=== PATIENT | male | born 1995 | race American Indian/Alaskan Native ===

== ENCOUNTER 2019-08-30 14:46 | Emergency (ER) | payer BC ==
[2019-08-30 15:08] VITALS: BP 154/79
--- NOTE | 2019-08-30 15:33 | Emergency Department Report ---
ED ENT HPI - General Chief complaint: Sore Throat Stated complaint: STREP Time Seen by Provider: 08/30/19 15:28 Source: patient Mode of arrival: Ambulatory Limitations: No Limitations - History of Present Illness Initial comments: This is a 24-year-old male nontoxic well in appearance with no signs of distress presents to the ED with complaint of sore throat. Patient denies any drooling or hoarseness. Patient denies any other symptoms. Denies any fever, chills, headache, nausea, vomiting, chest pain or SOB. Denies any other complaints. MD complaint: sore throat -: days(s) Location: throat Severity: mild Severity scale (0 -10): 8 Quality: aching Consistency: constant Improves with: none Worsens with: swallowing Associated Symptoms: pain with swallowing, sore throat. denies: fever, cough, gum swelling, toothache, tinnitus, hearing loss, discharge from ear, rhinorrhea - Related Data Previous Rx's Medication Instructions Recorded Last Taken Type Ibuprofen [Motrin] 800 mg PO Q8HR PRN #30 tablet 11/01/18 Unknown Rx Azithromycin [Zithromax Z-ELIGIO] 250 mg PO DAILY #6 tablet 08/30/19 Unknown Rx Allergies Allergy/AdvReac Type Severity Reaction Status Date / Time Penicillins Allergy Swelling Verified 11/01/18 11:52 ED Dental HPI - General Chief complaint: Sore Throat Stated complaint: STREP Time Seen by Provider: 08/30/19 15:28 Source: patient Mode of arrival: Ambulatory Limitations: No Limitations - Related Data Previous Rx's Medication Instructions Recorded Last Taken Type Ibuprofen [Motrin] 800 mg PO Q8HR PRN #30 tablet 11/01/18 Unknown Rx Azithromycin [Zithromax Z-ELIGIO] 250 mg PO DAILY #6 tablet 08/30/19 Unknown Rx Allergies Allergy/AdvReac Type Severity Reaction Status Date / Time Penicillins Allergy Swelling Verified 11/01/18 11:52 ED Review of Systems ROS: Stated complaint: STREP Other details as noted in HPI Constitutional: denies: chills, fever Eyes: denies: eye pain, eye discharge, vision change ENT: throat pain. denies: ear pain Respiratory: denies: cough, shortness of breath, wheezing Cardiovascular: denies: chest pain, palpitations Endocrine: no symptoms reported Gastrointestinal: denies: abdominal pain, nausea, diarrhea Genitourinary: denies: urgency, dysuria Musculoskeletal: denies: back pain, joint swelling, arthralgia Skin: denies: rash, lesions Neurological: denies: headache, weakness, paresthesias Psychiatric: denies: anxiety, depression Hematological/Lymphatic: denies: easy bleeding, easy bruising ED Past Medical Hx - Past Medical History Previous Medical History?: No - Surgical History Past Surgical History?: No - Social History Smoking Status: Never Smoker Substance Use Type: None - Medications Home Medications: Home Medications Medication Instructions Recorded Confirmed Last Taken Type Ibuprofen [Motrin] 800 mg PO Q8HR PRN #30 tablet 11/01/18 Unknown Rx Azithromycin [Zithromax Z-ELIGIO] 250 mg PO DAILY #6 tablet 08/30/19 Unknown Rx ED Physical Exam - General Limitations: No Limitations General appearance: alert, in no apparent distress - Head Head exam: Present: atraumatic, normocephalic - Eye Eye exam: Present: normal appearance - Expanded ENT Exam Expanded Ear exam: Present: normal external inspection Mouth exam: Present: normal external inspection. Absent: drooling, trismus, muffled voice Teeth exam: Present: normal inspection Throat exam: Positive: tonsillar erythema, other (uvula midline). Negative: tonsillomegaly, tonsillar exudate, R peritonsillar mass, L peritonsillar mass - Neck Neck exam: Present: normal inspection, full ROM. Absent: tenderness, meningismus, lymphadenopathy - Respiratory Respiratory exam: Present: normal lung sounds bilaterally. Absent: respiratory distress, wheezes, rales, rhonchi, stridor, chest wall tenderness, accessory muscle use, decreased breath sounds, prolonged expiratory - Cardiovascular Cardiovascular Exam: Present: regular rate, normal rhythm, normal heart sounds. Absent: bradycardia, tachycardia, irregular rhythm, systolic murmur, diastolic murmur, rubs, gallop - Extremities Exam Extremities exam: Present: full ROM - Back Exam Back exam: Present: full ROM - Neurological Exam Neurological exam: Present: alert, oriented X3, normal gait - Psychiatric Psychiatric exam: Present: normal affect, normal mood - Skin Skin exam: Present: warm, dry, intact, normal color. Absent: rash ED Course Vital Signs 08/30/19 15:07 Temperature 98.6 F Pulse Rate 75 Respiratory 20 Rate Blood Pressure 154/79 O2 Sat by Pulse 100 Oximetry - Reevaluation(s) Reevaluation #1: 08/30/19 15:30 Patient is speaking in full sentences with no signs of distress noted. ED Medical Decision Making - Medical Decision Making Patient was instructed to Follow-up with a primary care doctor in 3-5 days or if symptoms worsen and continue return to emergency room as soon as possible. At time of discharge, the patient does not seem toxic or ill in appearance. No acute signs of distress noted. Patient agrees to discharge treatment plan of care. No further questions noted by the patient. Critical care attestation.: If time is entered above; I have spent that time in minutes in the direct care of this critically ill patient, excluding procedure time. ED Disposition Clinical Impression: Pharyngitis Qualifiers: Pharyngitis/tonsillitis etiology: unspecified etiology Qualified Code(s): J02.9 - Acute pharyngitis, unspecified Disposition: DC-01 TO HOME OR SELFCARE Is pt being admited?: No Does the pt Need Aspirin: No Condition: Stable Instructions: Pharyngitis (ED) Additional Instructions: Follow-up with a primary care doctor in 3-5 days or if symptoms worsen and continue return to emergency room as soon as possible. Prescriptions: Azithromycin [Zithromax Z-ELIGIO] 250 mg PO DAILY #6 tablet Referrals: ALESSANDRO PIERRE MD [Referring] - 3-5 Days LJ XAVIER MD [Staff Physician] - 3-5 Days
== END 2019-08-30 15:51 | disposition home or self-care (01) ==
LOC: ED 14:46
DX: J02.9 Acute pharyngitis, unspecified (principal); Z79.2 Long term (current) use of antibiotics; Z79.1 Long term (current) use of non-steroidal anti-inflammatories (NSAID); Z88.0 Allergy status to penicillin
CPT/HCPCS: 99281

== ENCOUNTER 2020-03-20 12:45 | Emergency (ER) | payer SELFPAY ==
[2020-03-20 13:37] VITALS: BP 144/68
--- NOTE | 2020-03-20 13:43 | Emergency Department Report ---
ED ENT HPI - General Chief complaint: Sore Throat Stated complaint: STREP THROAT Time Seen by Provider: 03/20/20 13:23 Source: patient Mode of arrival: Ambulatory Limitations: No Limitations - History of Present Illness Initial comments: This is a 24-year-old male presents the emergency department chief complaint of sore throat over the past 2 days. Patient reports he has had strep throat in the past and it feels very similar. He denies any known past medical history, current medication use or known allergies to medications other than penicillin. He denies any associate fever, chills, night sweats, headache, dizziness, blurry vision, nausea, vomiting, diarrhea, chest pain, shortness of breath. He denies any known sick contacts. Denies any loss of taste or smell, diarrhea, body aches or any other associated symptoms. MD complaint: sore throat - Related Data Previous Rx's Medication Instructions Recorded Last Taken Type Ibuprofen [Motrin] 800 mg PO Q8HR PRN #30 tablet 11/01/18 Unknown Rx Azithromycin [Zithromax Z-ELIGIO] 250 mg PO DAILY #6 tablet 03/20/20 Unknown Rx Allergies Allergy/AdvReac Type Severity Reaction Status Date / Time Penicillins Allergy Swelling Verified 11/01/18 11:52 ED Dental HPI - General Chief complaint: Sore Throat Stated complaint: STREP THROAT Time Seen by Provider: 03/20/20 13:23 Source: patient Mode of arrival: Ambulatory Limitations: No Limitations - Related Data Previous Rx's Medication Instructions Recorded Last Taken Type Ibuprofen [Motrin] 800 mg PO Q8HR PRN #30 tablet 11/01/18 Unknown Rx Azithromycin [Zithromax Z-ELIGIO] 250 mg PO DAILY #6 tablet 03/20/20 Unknown Rx Allergies Allergy/AdvReac Type Severity Reaction Status Date / Time Penicillins Allergy Swelling Verified 11/01/18 11:52 ED Review of Systems ROS: Stated complaint: STREP THROAT Other details as noted in HPI Constitutional: denies: chills, fever Eyes: denies: eye pain, eye discharge, vision change ENT: throat pain. denies: ear pain Respiratory: denies: cough, shortness of breath, wheezing Cardiovascular: denies: chest pain, palpitations Endocrine: no symptoms reported Gastrointestinal: denies: abdominal pain, nausea, diarrhea Genitourinary: denies: urgency, dysuria Musculoskeletal: denies: back pain, joint swelling, arthralgia Skin: denies: rash, lesions Neurological: denies: headache, weakness, paresthesias Psychiatric: denies: anxiety, depression Hematological/Lymphatic: denies: easy bleeding, easy bruising ED Past Medical Hx - Past Medical History Previous Medical History?: No - Surgical History Past Surgical History?: No - Social History Smoking Status: Never Smoker Substance Use Type: None - Medications Home Medications: Home Medications Medication Instructions Recorded Confirmed Last Taken Type Ibuprofen [Motrin] 800 mg PO Q8HR PRN #30 tablet 11/01/18 Unknown Rx Azithromycin [Zithromax Z-ELIGIO] 250 mg PO DAILY #6 tablet 03/20/20 Unknown Rx ED Physical Exam - General Limitations: No Limitations General appearance: alert, in no apparent distress - Head Head exam: Present: atraumatic, normocephalic - Eye Eye exam: Present: normal appearance, PERRL, EOMI Pupils: Present: normal accommodation - ENT ENT exam: Present: normal exam, mucous membranes moist, other (Erythema the posterior pharynx with bilateral tonsillar exudate. No peritonsillar bulging, retropharyngeal bulging or tongue elevation. No dysphonia or drooling.). Absent: normal orophraynx - Neck Neck exam: Present: normal inspection, full ROM. Absent: tenderness, meningismus - Respiratory Respiratory exam: Present: normal lung sounds bilaterally. Absent: respiratory distress, wheezes, rales, rhonchi, stridor - Cardiovascular Cardiovascular Exam: Present: regular rate, normal rhythm. Absent: systolic murmur, diastolic murmur, rubs, gallop - GI/Abdominal GI/Abdominal exam: Present: soft, normal bowel sounds. Absent: distended, tenderness, guarding, rebound, rigid - Rectal Rectal exam: Present: deferred - Extremities Exam Extremities exam: Present: normal inspection, full ROM, normal capillary refill. Absent: tenderness, pedal edema - Back Exam Back exam: Present: normal inspection, full ROM. Absent: tenderness, CVA tenderness (R), CVA tenderness (L) - Neurological Exam Neurological exam: Present: alert, oriented X3, normal gait - Psychiatric Psychiatric exam: Present: normal affect, normal mood - Skin Skin exam: Present: warm, dry, intact, normal color. Absent: rash ED Course Vital Signs 03/20/20 13:35 Temperature 98.0 F Pulse Rate 67 Respiratory 16 Rate Blood Pressure 144/68 O2 Sat by Pulse 99 Oximetry Critical care attestation.: If time is entered above; I have spent that time in minutes in the direct care of this critically ill patient, excluding procedure time. ED Disposition Clinical Impression: Acute pharyngitis Qualifiers: Pharyngitis/tonsillitis etiology: unspecified etiology Qualified Code(s): J02.9 - Acute pharyngitis, unspecified Disposition: TO HOME OR SELFCARE Is pt being admited?: No Condition: Stable Instructions: Sore Throat, [id number] Prescriptions: Azithromycin [Zithromax Z-ELIGIO] 250 mg PO DAILY #6 tablet Referrals: [facility] [Provider Group] - 3-5 Days Forms: Work/School Release Form(ED) Time of Disposition: 13:43
== END 2020-03-20 14:54 | disposition home or self-care (01) ==
LOC: ED 12:45
DX: J02.9 Acute pharyngitis, unspecified (principal); Z79.899 Other long term (current) drug therapy; Z88.0 Allergy status to penicillin
CPT/HCPCS: 99282

== ENCOUNTER 2020-11-15 14:23 | Emergency (ER) | payer SELFPAY ==
[2020-11-15 14:42] VITALS: BP 144/73
--- NOTE | 2020-11-15 15:10 | Emergency Department Report ---
ED ENT HPI - General Chief complaint: Sore Throat Stated complaint: SORE THROAT Time Seen by Provider: 11/15/20 15:03 Source: patient Mode of arrival: Ambulatory Limitations: No Limitations - History of Present Illness Initial comments: The patient was evaluated in the emergency department for symptoms described in the history of present illness. He/she was evaluated in the context of the global COVID-19 pandemic, which necessitated consideration that the patient might be at risk for infection with the virus that causes COVID-19. Institutional protocols and algorithms that pertain to the evaluation of patients at risk for COVID-19 are in a state of rapid change based on information released by regulatory bodies including the CDC and federal and state organizations. These policies and algorithms were followed during the patient's care in the emergency department. Please note that these policies, procedures and recommendations changed on a rapid basis. 25-year-old -[place] male presents to the emergency room complaining of a sore throat times a couple of days. Patient denies any fever chills no nausea no vomiting no headache or abdominal pain. Patient reports he has a history of strep. He reports he does not have a primary care provider. States he is able to swallow. Has taken Tylenol and ibuprofen for pain management. MD complaint: sore throat Onset/Timin -: days(s) Severity scale (0 -10): 4 Quality: sharp Consistency: constant Improves with: none Worsens with: swallowing Associated Symptoms: pain with swallowing, sore throat. denies: fever, cough, gum swelling, toothache, tinnitus, hearing loss, discharge from ear, rhinorrhea - Related Data Previous Rx's Medication Instructions Recorded Last Taken Type Ibuprofen [Motrin] 800 mg PO Q8HR PRN #30 tablet 11/01/18 Unknown Rx Azithromycin [Zithromax Z-ELIGIO] 250 mg PO DAILY #6 tablet 03/20/20 Unknown Rx Allergies Allergy/AdvReac Type Severity Reaction Status Date / Time Penicillins Allergy Swelling Verified 11/01/18 11:52 ED Dental HPI - General Chief complaint: Sore Throat Stated complaint: SORE THROAT Time Seen by Provider: 11/15/20 15:03 Source: patient Mode of arrival: Ambulatory Limitations: No Limitations - Related Data Previous Rx's Medication Instructions Recorded Last Taken Type Ibuprofen [Motrin] 800 mg PO Q8HR PRN #30 tablet 09/24/19 Unknown Rx Azithromycin [Zithromax Z-ELIGIO] 250 mg PO DAILY #6 tablet 03/20/20 Unknown Rx Allergies Allergy/AdvReac Type Severity Reaction Status Date / Time Penicillins Allergy Swelling Verified 11/01/18 11:52 ED Review of Systems ROS: Stated complaint: SORE THROAT Other details as noted in HPI Comment: All other systems reviewed and negative ED Past Medical Hx - Past Medical History Previous Medical History?: No - Surgical History Past Surgical History?: No - Social History Smoking Status: Never Smoker Substance Use Type: None - Medications Home Medications: Home Medications Medication Instructions Recorded Confirmed Last Taken Type Ibuprofen [Motrin] 800 mg PO Q8HR PRN #30 tablet 11/01/18 Unknown Rx Azithromycin [Zithromax Z-ELIGIO] 250 mg PO DAILY #6 tablet 03/20/20 Unknown Rx ED Physical Exam - General Limitations: No Limitations General appearance: alert, in no apparent distress - Head Head exam: Present: atraumatic, normocephalic, normal inspection - Eye Eye exam: Present: normal appearance - Expanded ENT Exam Expanded Throat exam: Positive: tonsillar erythema - Neck Neck exam: Present: normal inspection, full ROM - Respiratory Respiratory exam: Present: normal lung sounds bilaterally. Absent: chest wall tenderness, accessory muscle use - Cardiovascular Cardiovascular Exam: Present: regular rate - GI/Abdominal GI/Abdominal exam: Present: soft. Absent: distended, tenderness - Back Exam Back exam: Present: normal inspection - Neurological Exam Neurological exam: Present: alert, oriented X3, normal gait - Psychiatric Psychiatric exam: Present: normal affect, normal mood - Skin Skin exam: Present: warm, dry, intact, normal color. Absent: rash ED Course Vital Signs 11/15/20 11/15/20 14:41 14:42 Temperature 98.6 F Pulse Rate 75 Respiratory 16 Rate Blood Pressure 144/73 O2 Sat by Pulse 98 Oximetry ED Medical Decision Making - Medical Decision Making 25-year-old -[place] male presents to the emergency room complaining of a sore throat times a couple of days. Patient denies any fever chills no nausea no vomiting no headache or abdominal pain. Patient reports he has a history of strep. He reports he does not have a primary care provider. States he is able to swallow. Has taken Tylenol and ibuprofen for pain management. Rapid strep obtained and sent to lab Critical care attestation.: If time is entered above; I have spent that time in minutes in the direct care of this critically ill patient, excluding procedure time. ED Disposition Clinical Impression: Sore throat (viral) Disposition: 01 HOME / SELF CARE / HOMELESS Is pt being admited?: No Does the pt Need Aspirin: No Condition: Stable Instructions: Sore Throat, [id number] Additional Instructions: Strep test was negative. You can take Tylenol or ibuprofen warm salt gargles. Follow-up with your primary care provider. Referrals: PRIMARY MD IGNACIO [Primary Care Provider] - 3-5 Days LJ XAVIER MD [Staff Physician] - 3-5 Days Forms: Work/School Release Form(ED)
== END 2020-11-15 16:15 | disposition home or self-care (01) ==
LOC: ED 14:23
DX: J02.8 Acute pharyngitis due to other specified organisms (principal); B97.89 Other viral agents as the cause of diseases classified elsewhere; Z79.899 Other long term (current) drug therapy
CPT/HCPCS: 87116; 87430; 99283